=== PATIENT | male | born 1985 | race Two or more races ===

== ENCOUNTER 2021-11-30 01:07 | Emergency (ER) | payer MEDICAID ==
[~2021-11-30] VITALS: Ht 177.8 cm; Wt 82.0 kg
[2021-11-30] MEDS ORDERED: ACETAMINOPHEN 325MG TABLET PO ONE (01:45)
[2021-11-30] MEDS ORDERED: ONDANSETRON 4MG ODT PO ONE (01:45)
[2021-11-30 02:42] LABS: BASOPHILS % 1.2 % (0.0-2.0); EOSINOPHILS % 1.2 % (0.0-5.0); HEMOGLOBIN. 13.3 g/dL (14.0-18.0); LYMPHOCYTES % 28.3 % (20.0-50.0); MEAN CORPUSCULAR HEMOGLOBIN 32.2 pg (28.0-32.0); MEAN CORPUSCULAR VOLUME 94.2 fL (80.0-94.0); MEAN PLATELET VOLUME 8.4 fl (7.4-10.4); NEUTROPHILS % 61.3 % (40.0-76.0); PLATELET 141 x1000/uL (130-400); RED BLOOD CELL COUNT 4.13 mill/uL (4.7-6.1); RED CELL DISTRIBUTION WIDTH 14.1 % (11.6-14.6)
[2021-11-30 02:44] LABS: CHLORIDE 94 mEq/L (98-107)
[2021-11-30 02:49] LABS: ETHANOL BLOOD 161 mg/dL
[2021-11-30] MEDS ORDERED: LORAZEPAM 1MG TABLET PO ONE (04:00)
[2021-11-30 04:07] VITALS: BP 140/84
== END 2021-11-30 04:32 | disposition home or self-care (01) ==
LOC: ER 01:07
DX: F10.129 Alcohol abuse with intoxication, unspecified (principal); Y90.6 Blood alcohol level of 120-199 mg/100 ml
CPT/HCPCS: 36415; 80053; 80320; 85025; 99284; Q0162; G0480

== ENCOUNTER 2022-03-15 06:21 | Emergency (ER) | payer MEDICAID ==
[~2022-03-15] VITALS: Ht 180.3 cm; Wt 80.7 kg
[2022-03-15 06:25] VITALS: BP 136/96
[2022-03-15] MEDS ORDERED: FAMOTIDINE 20MG TABLET PO ONE (09:00)
[2022-03-15] MEDS ORDERED: ONDANSETRON 4MG ODT PO ONE (09:00)
== END 2022-03-15 10:30 | disposition left against medical advice (07) ==
LOC: ER 06:21
DX: K29.20 Alcoholic gastritis without bleeding (principal); F10.10 Alcohol abuse, uncomplicated; Z86.59 Personal history of other mental and behavioral disorders; Y90.9 Presence of alcohol in blood, level not specified
CPT/HCPCS: 99283; Q0162